=== PATIENT | male | born 1995 | race African-American/Black ===

== ENCOUNTER 2016-12-08 11:14 | Emergency (ER) | payer OTHER ==
[~2016-12-08] VITALS: Ht 175.3 cm; Wt 74.8 kg
[2016-12-08 11:17] VITALS: BP 127/67
[2016-12-08] MEDS ORDERED: DIPH25CA58 PO (12:08)
[2016-12-08] MEDS ORDERED: HYDR25TA PO (12:08)
[2016-12-08] MEDS ORDERED: TRIA15OI TP (12:08)
[2016-12-08] MEDS ORDERED: PRED50TA PO (12:08)
[2016-12-08] MEDS ORDERED: FAMO-63 PO (12:08)
--- NOTE | 2016-12-08 12:08 | PHYS DOC ---
Past Medical History Past Medical History: No Pertinent History Past Surgical History: No Surgical History Alcohol Use: None Drug Use: None Adult General Chief Complaint Chief Complaint: EARACHE/EAR PAIN HPI HPI Patient is a 21 year old male with no significant medical history who presents with insect bites to bilateral upper and lower extremities and ears that began yesterday. Patient denies any known source of this insect bites. Review of Systems Review of Systems Constitutional: Denies fever or chills [] Eyes: Denies change in visual acuity, redness, or eye pain [] Musculoskeletal: Denies back pain or joint pain [] Integument: Insect bites Neurologic: Denies headache, focal weakness or sensory changes [] Endocrine: Denies polyuria or polydipsia [] Allergies Allergies Allergies Coded Allergies Type Severity Reaction Last Updated Verified No Known Drug Allergies 02/13/15 No Physical Exam Physical Exam Constitutional: Well developed, well nourished, no acute distress, non-toxic appearance. [] HENT: Normocephalic, atraumatic, bilateral external ears normal, oropharynx moist, no oral exudates, nose normal. [] Skin: Patient has mild amount of erythematous appealer rashes on the right thigh , right lateral abdomen, the lateral upper extremity, and left ear externally. Back: No tenderness, no CVA tenderness. [] Extremities: No tenderness, no cyanosis, no clubbing, ROM intact, no edema. [] Neurologic: Alert and oriented X 3, normal motor function, normal sensory function, no focal deficits noted. [] Psychologic: Affect normal, judgement normal, mood normal. [] Current Patient Data Vital Signs Vital Signs Date Time Temp Pulse Resp B/P (MAP) Pulse Ox O2 Delivery O2 Flow Rate FiO2 12/08/16 11:17 97.7 74 18 99 Room Air 97.7 EKG EKG [] Radiology/Procedures Radiology/Procedures [] Course & Med Decision Making Course & Med Decision Making Pertinent Labs and Imaging studies reviewed. (See chart for details) Patient has insect bite all over his body from unknown source. He was given prescription for Atarax, Benadryl, prednisone, triamcinolone cream as well as Pepcid. 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 Dragon Disclaimer Dragon Disclaimer This electronic medical record was generated, in whole or in part, using a voice recognition dictation system. Departure Departure Impression: Primary Impression: Insect bites Disposition: 01 HOME, SELF-CARE Condition: STABLE Referrals: NO PCP (PCP) VERONIKA HAGER MD Follow-up with your doctor in 2 weeks Patient Instructions: Insect Bite, [id number] Additional Instructions: You were seen for insect bites throughout your body. Take the prescribed medicines as ordered. Follow-up with the provided doctor or your own doctor in 2 weeks. Scripts Diphenhydramine Hcl (BENADRYL) 25 Mg Capsule 1 CAP PO Q4HRS W/A Y for RASH, #30 CAP 1 Refill Prov: SASHA STEWARD APRN 12/08/16 Hydroxyzine Hcl (HYDROXYZINE HCL) 25 Mg Tablet 1 TAB PO TID, #30 TAB Prov: SASHA STEWARD APRN 12/08/16 Triamcinolone Acetonide (TRIAMCINOLONE ACETONIDE 0.1% OINT) 15 Gm Oint...g. 1 CHANDNI TP BID for WOUND CARE, #1 TUBE MIX WITH EUCERIN DIRECTED BY PHYSICIAN Prov: SASHA STEWARD APRN 12/08/16 Famotidine (PEPCID) 20 Mg Tablet 20 MG PO DAILY, #7 TAB Prov: SASHA STEWARD APRN 12/08/16 Prednisone (PREDNISONE) 50 Mg Tablet 1 TAB PO DAILY, #5 TAB Prov: SASHA STEAWRD APRN 12/08/16 Problem Qualifiers Primary Impression: Insect bites Encounter type: initial encounter Qualified Codes: W57.XXXA - Bitten or stung by nonvenomous insect and other nonvenomous arthropods, initial encounter SASHA STEWARD APRN Dec 08, 2016 12:08
== END 2016-12-08 12:23 | disposition home or self-care (01) ==
LOC: ER 11:14
DX: S70.361A Insect bite (nonvenomous), right thigh, initial encounter (principal); S80.862A Insect bite (nonvenomous), left lower leg, initial encounter; S80.861A Insect bite (nonvenomous), right lower leg, initial encounter; S40.862A Insect bite (nonvenomous) of left upper arm, initial encounter; S40.861A Insect bite (nonvenomous) of right upper arm, initial encounter; S30.861A Insect bite (nonvenomous) of abdominal wall, initial encounter; W57.XXXA Bitten or stung by nonvenomous insect and other nonvenomous arthropods, initial encounter; Y93.89 Activity, other specified; Y92.89 Other specified places as the place of occurrence of the external cause; Y99.8 Other external cause status
CPT/HCPCS: 99283